=== PATIENT | female | born 1980 | race Caucasian/White ===

== ENCOUNTER 2016-10-18 22:31 | Emergency (ER) | payer MEDICAID ==
[2016-10-18 22:38] VITALS: BP 137/94; PULSE 101; RESP 16; TEMP 97.5; O2SAT 98
--- NOTE | 2016-10-18 22:56 | EDPHY ---
H & P Time Seen by Provider: 10/18/16 22:42 HPI/ROS: CHIEF COMPLAINT: Right eye irritation HISTORY OF PRESENT ILLNESS: 36-year-old female with no history of corrective lens use complaining of right eye irritation after she was watering a planned, leaning over and a planned leaf for branch abraded her right eye. She is complaining of tearing of the eye and right eye pain. Tetanus is out-of-date. PHYSICAL EXAM (Prior to examination, patient consented to physical exam, hands were washed and my usual and customary physical exam procedures followed) 1) GENERAL: Well-developed, well-nourished, alert and oriented. Appears to be in no acute distress. 2) HEAD: Normocephalic 3) ENT: sclera anicteric 4) LUNGS: Breathing comfortably. 5) OCULAR EXAM: Visual Acuity: noted from Nurse's notes. Pupils:equal round and reactive to light EOMI Lids: no edema or swelling, upper and lower lids were everted and no foreign bodies were visualized, no areas of increased fluorescein uptake. Skin: no proptosis, no periorbital erythema or swelling, no vesicles, no pain with extraocular movements. Conjunctivae: not injected, no discharge, negative Keily test. Cornea: exam with fluorescein shows an area of increased uptake with vertical orientation between the 12 o'clock and 6:00 position consistent with corneal abrasion. Anterior chamber:normal, no hyphema or hypopyon Smoking Status: Never smoked Constitutional: Initial Vital Signs Temperature (C) 36.4 C 10/18/16 22:34 Heart Rate 101 H 10/18/16 22:34 Respiratory Rate 16 10/18/16 22:34 Blood Pressure 137/94 H 10/18/16 22:34 O2 Sat (%) 98 10/18/16 22:34 O2 Delivery Mode Room Air Allergies/Adverse Reactions: No Known Allergies Allergy (Unverified 09/18/09 12:39) Home Medications: Medication Instructions Recorded Obcp 09/18/09 Adderall 10 MG (*) 10/18/16 VYVANSE 10/18/16 MDM/Departure - MDM Medications Given: Discontinued Medications Fluorescein Sodium (Pptht-[id number]) 1 mg OP EDNOW ONE Stop: 10/18/16 22:58 Last Admin: 10/18/16 23:00 Dose: 1 mg Proparacaine HCl (Alcaine 0.5%) 1 drops OP EDNOW ONE Stop: 10/18/16 22:58 Last Admin: 10/18/16 23:00 Dose: 1 drop ED Course/Re-evaluation: Patient has evidence of corneal abrasion. Doubt globe rupture. Tetanus is updated. She is started on antibiotic drops and recommend ophthalmology follow- up. Usual and customary ophthalmological precautions instructions provided. Care and management in consultation with [secondary] supervising physician Dr Hutchinson . - Depart Disposition: Home, Routine, Self-Care Clinical Impression: Corneal abrasion, right Qualifiers: Encounter type: initial encounter Qualified Code(s): S05.01XA - Injury of conjunctiva and corneal abrasion without foreign body, right eye, initial encounter Condition: Good Instructions: Corneal Abrasion (ED), Ofloxacin (Into the eye) Additional Instructions: Return to the ER if you develop new or worsening eye symptoms Referrals: Spencer Beverly MD [Medical Doctor] - 1-2 days without fail (Dr. Spencer Beverly is an emergency medical service manager)
[2016-10-18] MEDS ORDERED: FLUORESCEIN SODIUM 1 MG STRIP OP ONE (22:57)
[2016-10-18] MEDS ORDERED: PROPARACAINE 0.5% 15 ML OPHT DROP OP ONE (22:57)
[2016-10-18] MEDS ORDERED: TDAP ADULT 0.5 ML INJ (BOOSTRIX) IM ONE (23:11)
[2016-10-18] MEDS ORDERED: OFLOXACIN 0.3% SOLN PREPACK OPHT.BTL TAKEHOME ONE (23:11)
== END 2016-10-18 23:22 | disposition home or self-care (01) ==
DX: S05.01XA Injury of conjunctiva and corneal abrasion without foreign body, right eye, initial encounter (principal); Z23 Encounter for immunization; X58.XXXA Exposure to other specified factors, initial encounter

== ENCOUNTER → 2016-10-19 | Outpatient (CLI) | payer MEDICAID | LOC: FIMAGING 12:27 | PROVIDERS: ATTEND Obstetrics & Gynecology | DX: Z12.31 Encounter for screening mammogram for malignant neoplasm of breast (principal) | CPT/HCPCS: G0204 ==